=== PATIENT | female | born 1955 | race Two or more races ===

== ENCOUNTER → 2017-04-06 | Outpatient (CLI) | payer BC ==
[~2017-04-06] MED LIST: ASCO10004 PO; ASPI-496 PO; ATOR20TA9 PO; CARV3.1212 PO; CHOL200024 PO; CLOP75TA22 PO; DOCU-30 PO; ESCI20TA10 PO; GABA-827 PO; GABA300C10 PO; GADOBUTROL 7.5 MMOL/7.5 ML PFS ONE; HYDR25TA11 PO; IBUP-1222 PO; ISOS30TA8 PO; LACT1CAP35 PO; LAMO200T49 PO; LISI2.5T PO; OXYC-302 PO; OXYC10TA6 PO; TOLT4CAP PO; TOPI200T25 PO
== END | disposition home or self-care (01) ==
LOC: EDSTATUS 03-29 09:30 → RAD 13:02
PROVIDERS: ATTEND Registered Nurse
DX: S06.5X9A Traumatic subdural hemorrhage with loss of consciousness of unspecified duration, initial encounter (principal); X58.XXXA Exposure to other specified factors, initial encounter; Y93.89 Activity, other specified; Y92.89 Other specified places as the place of occurrence of the external cause; Y99.8 Other external cause status
CPT/HCPCS: 70553; A9585

== ENCOUNTER → 2017-04-20 | Outpatient (CLI) | payer BC ==
[~2017-04-20] MED LIST changes: -GADOBUTROL 7.5 MMOL/7.5 ML PFS ONE
== END | disposition home or self-care (01) ==
LOC: CVU 15:51
PROVIDERS: ATTEND Internal Medicine Cardiovascular Disease
DX: I63.9 Cerebral infarction, unspecified (principal); I10 Essential (primary) hypertension; I25.2 Old myocardial infarction; R56.9 Unspecified convulsions; F17.210 Nicotine dependence, cigarettes, uncomplicated; Z86.73 Personal history of transient ischemic attack (TIA), and cerebral infarction without residual deficits
CPT/HCPCS: 93880

== ENCOUNTER → 2017-05-28 | Outpatient (CLI) | payer BC | END | disposition home or self-care (01) | LOC: CARD 12:45 | PROVIDERS: ATTEND Registered Nurse | DX: S09.90XS Unspecified injury of head, sequela (principal); I62.9 Nontraumatic intracranial hemorrhage, unspecified; X58.XXXS Exposure to other specified factors, sequela | CPT/HCPCS: 70450; 95819 ==

== ENCOUNTER → 2018-06-10 | Outpatient (CLI) | payer BC ==
[~2018-06-10] MED LIST changes: -CLOP75TA22 PO; +CLOP75TA52 PO; +DOCU-131 PO; -DOCU-30 PO; +GADOBUTROL 7.5 MMOL/7.5 ML PFS ONE
== END | disposition home or self-care (01) ==
LOC: CARD 09:00 → CFH 14:33 → CARD 06-19 08:41
PROVIDERS: ATTEND Registered Nurse
DX: S06.0X0S Concussion without loss of consciousness, sequela (principal); H70.93 Unspecified mastoiditis, bilateral; G40.209 Localization-related (focal) (partial) symptomatic epilepsy and epileptic syndromes with complex partial seizures, not intractable, without status epilepticus; G89.4 Chronic pain syndrome; X58.XXXS Exposure to other specified factors, sequela
CPT/HCPCS: 70553; 82565; A9585; 95819

== ENCOUNTER → 2018-06-19 | Outpatient (CLI) | payer BC ==
[~2018-06-19] MED LIST changes: -GADOBUTROL 7.5 MMOL/7.5 ML PFS ONE
== END | disposition home or self-care (01) ==
LOC: CARD 08:41
PROVIDERS: ATTEND Registered Nurse
DX: G40.209 Localization-related (focal) (partial) symptomatic epilepsy and epileptic syndromes with complex partial seizures, not intractable, without status epilepticus (principal)
CPT/HCPCS: 95819

== ENCOUNTER → 2019-04-03 | Outpatient (CLI) | payer MEDICARE, BC ==
[~2019-04-03] MED LIST changes: +ATOR20TA37 PO; -ATOR20TA9 PO
== END | disposition home or self-care (01) ==
LOC: CFH 09:56
PROVIDERS: ATTEND Registered Nurse
DX: G31.1 Senile degeneration of brain, not elsewhere classified (principal); J32.0 Chronic maxillary sinusitis
CPT/HCPCS: 70450

== ENCOUNTER → 2019-04-13 | Outpatient (CLI) | payer MEDICARE, BC | END | disposition home or self-care (01) | LOC: CARD 12:42 | PROVIDERS: ATTEND Registered Nurse | DX: R94.31 Abnormal electrocardiogram [ECG] [EKG] (principal) | CPT/HCPCS: 95819 ==

== ENCOUNTER 2020-01-14 10:07 | Outpatient (CLI) | payer MEDICARE, BC ==
[~2020-01-14 10:07] MED LIST changes: +HYDR-826 PO; -HYDR25TA11 PO
== END 2020-01-14 23:59 | disposition home or self-care (01) ==
LOC: CFH 10:07
PROVIDERS: ATTEND Internal Medicine Cardiovascular Disease
DX: I08.8 Other rheumatic multiple valve diseases (principal); I25.10 Atherosclerotic heart disease of native coronary artery without angina pectoris
CPT/HCPCS: 93306